=== PATIENT | male | born 1970 | race Caucasian/White ===

== ENCOUNTER → 2017-03-02 | Outpatient (CLI) | payer SELFPAY | LOC: MW.CHFP 09:26 | PROVIDERS: ATTEND Physician Assistant | DX: R07.89 Other chest pain (principal) | CPT/HCPCS: 93005 ==

== ENCOUNTER → 2017-03-03 | Outpatient (CLI) | payer BC ==
[2017-03-03 09:59] LABS: CHLORIDE,CL 106 mmol/L (98-110); SODIUM,NA 140 mmol/L (136-146)
== END | disposition home or self-care (01) ==
LOC: MW.CHFP 09:09
PROVIDERS: ATTEND Physician Assistant
DX: R53.83 Other fatigue (principal); N52.9 Male erectile dysfunction, unspecified; R07.89 Other chest pain
CPT/HCPCS: 36415; 80053; 80061; 84402; 84403; 84443; 85025

== ENCOUNTER 2019-01-15 08:59 | Emergency (ER) | payer BC ==
--- NOTE | 2019-01-15 09:23 | EDM.PDOC ---
ED HPI GENERAL MEDICAL PROBLEM - General Chief Complaint: Upper Extremity Injury/Pain Stated Complaint: LT SHOULDER PAIN Time Seen by Provider: 01/15/19 09:19 - History of Present Illness INITIAL COMMENTS - FREE TEXT/NARRATIVE: HISTORY AND PHYSICAL: History of present illness: Patient's a 48-year-old white male presents with a concern of left shoulder and elbow pain status post fall yesterday he denies other trauma concern has no other complaints Review of systems: As per history of present illness and below otherwise all systems reviewed and negative. Past medical history: As per history of present illness and as reviewed below otherwise noncontributory. Surgical history: As per history of present illness and as reviewed below otherwise noncontributory. Social history: No reported history of drug or alcohol abuse. Family history: As per history of present illness and as reviewed below otherwise noncontributory. Physical exam: HEENT: Atraumatic, normocephalic, pupils reactive, negative for conjunctival pallor or scleral icterus, mucous membranes moist, throat clear, neck supple, nontender, trachea midline. Lungs: Clear to auscultation, breath sounds equal bilaterally, chest nontender. Heart: S1S2, regular, negative for clicks, rubs, or JVD. Abdomen: Soft, nondistended, nontender. Negative for masses or hepatosplenomegaly. Negative for costovertebral tenderness. Pelvis: Stable nontender. Genitourinary: Deferred. Rectal: Deferred. Extremities: Patient has no crepitation of the shoulder or elbow no point tenderness there is no gross instability in CMS in neurovascular exam is unremarkable Neuro: Awake, alert, oriented. Cranial nerves II through XII unremarkable. Cerebellum unremarkable. Motor and sensory unremarkable throughout. Exam nonfocal. Diagnostics: X-ray left shoulder/elbow Therapeutics: None Impression: #1 left shoulder/elbow injury Definitive disposition and diagnosis as appropriate pending reevaluation and review of above. Review of Systems - Review of Systems Review Of Systems: ROS reveals no pertinent complaints other than HPI. ED EXAM, GENERAL - Physical Exam Exam: See Below (See dictation) Course - Orders/Labs/Meds Orders: Active Orders 24 hr Category Date Time Status Forearm 2V Lt [CR] Stat Exams 01/15/19 09:20 Ordered Shoulder Comp Lt [CR] Stat Exams 01/15/19 09:19 Ordered Departure - Departure Time of Disposition: 09:21 Disposition: Home, Self-Care 01 Condition: Good Clinical Impression: Shoulder injury, Elbow injury - Discharge Information Referrals: PCP,None [Primary Care Provider] - Additional Instructions: The following information is given to patients seen in the emergency department who are being discharged to home. This information is to outline your options for follow-up care. We provide all patients seen in our emergency department with a follow-up referral. The need for follow-up, as well as the timing and circumstances, are variable depending upon the specifics of your emergency department visit. If you don't have a primary care physician on staff, we will provide you with a referral. We always advise you to contact your personal physician following an emergency department visit to inform them of the circumstance of the visit and for follow-up with them and/or the need for any referrals to a consulting specialist. The emergency department will also refer you to a specialist when appropriate. This referral assures that you have the opportunity for followup care with a specialist. All of these measure are taken in an effort to provide you with optimal care, which includes your followup. Under all circumstances we always encourage you to contact your private physician who remains a resource for coordinating your care. When calling for followup care, please make the office aware that this follow-up is from your recent emergency room visit. If for any reason you are refused follow-up, please contact the [facility] emergency department at and asked to speak to the emergency department charge nurse. [facility] [address], [address] [place] [address] Motrin/Tylenol as directed follow-up orthopedic clinic above call to schedule an appointment and return as needed as discussed [] - My Orders Last 24 Hours: My Active Orders 01/15/19 09:19 Shoulder Comp Lt [CR] Stat 01/15/19 09:20 Forearm 2V Lt [CR] Stat - Assessment/Plan Last 24 Hours: My Active Orders 01/15/19 09:19 Shoulder Comp Lt [CR] Stat 01/15/19 09:20 Forearm 2V Lt [CR] Stat
--- NOTE | 2019-01-15 10:39 | CR ---
EXAMINATION: Left shoulder HISTORY: Pain COMPARISON: None TECHNIQUE: 3 views FINDINGS: Moderate acromioclavicular osteoarthritic changes are noted. There is no fracture or acute osseous abnormality. Bone mineralization is otherwise normal. Preservation of the glenohumeral joint space. Stroke calcifications project near the coracoid process. IMPRESSION: Moderate acromioclavicular osteoarthritic changes without an acute osseous abnormality.
== END 2019-01-15 10:50 | disposition home or self-care (01) ==
LOC: MW.ED 08:59
DX: S49.92XA Unspecified injury of left shoulder and upper arm, initial encounter (principal); S59.902A Unspecified injury of left elbow, initial encounter; W19.XXXA Unspecified fall, initial encounter; Y92.481 Parking lot as the place of occurrence of the external cause
CPT/HCPCS: 73030-26-LT; 73030-LT; 99282; 99283